=== PATIENT | female | born 1990 | race African-American/Black ===

== ENCOUNTER 2020-03-14 00:30 | Inpatient (IN) ==
[2020-03-14] MEDS ORDERED: BUTORPHANOL 2 MG/ML VIAL IV PRN (00:39)
[2020-03-14] MEDS ORDERED: LACTATED RINGERS 1,000 ML IV ONE (00:39)
[2020-03-14] MEDS ORDERED: ONDANSETRON 4 MG/2 ML VIAL IV PRN ×2 (00:39→18:52)
[2020-03-14 01:14] LABS: Basophils % 0.2 % (0.0-0.8); Eosinophils # 0.1 10*3/uL (0.0-0.87); Eosinophils % 0.9 % (0.00-10.9); Hematocrit 25.3 VOL% (35.7-47.0); Hemoglobin 7.7 GM/DL (12.0-16.0); Immature Granulocytes % 0.7 %; Immature Granulocytes Absolute 0.06 #; Lymphocytes # 2.6 10*3/uL (1.4-4.0); Lymphocytes % 28.2 % (21.3-54.2); Mean Corpuscular HGB Conc 30.4 GM/DL (32-36); Mean Corpuscular Volume 71.7 FL (87-102); Mean Platelet Volume 11.7 FL (9.6-12.0); Monocytes % 7.2 % (1.7-12.7); Neutrophils % 62.8 % (38.7-73.9); Platelet Count 155 T/CUMM (130-400); Red Blood Count 3.53 MC/CUMM (3.8-5.5); Red Cell Distribution Width 16.8 % (9.3-17.3); White Blood Count 9.1 T/CUMM (4-12)
[2020-03-14] MEDS: LACTATED RINGERS 1,000 ML IV SCH ×4 (01:19→13:55)
[2020-03-14 01:45] LABS: Albumin 2.7 G/DL (3.4-5.0); Bilirubin,Total 0.4 MG/DL (0.2-1.0); Calcium 8.6 MG/DL (8.5-10.1); Osmolality,Calculated 267.1 MOS/KG (273-304)
[2020-03-14] MEDS ORDERED: OXYTOCIN/LR 20 UNIT/1,000 ML BAG IV ONE ×2 (08:46→18:52)
[2020-03-14] MEDS ORDERED: OXYTOCIN/LR 20 UNIT/1,000 ML BAG IV SCH (09:30)
[2020-03-14] MEDS ORDERED: ePHEDrine 50 MG/ML VIAL IV PRN ×2 (13:05)
[2020-03-14] MEDS ORDERED: LACTATED RINGERS 250 ML IV PRN (13:05)
[2020-03-14] MEDS ORDERED: PROMETHAZINE 25 MG/1 ML VIAL IM ONE (13:05)
[2020-03-14] MEDS ORDERED: ONDANSETRON 4 MG/2 ML VIAL IV ONE (13:05)
[2020-03-14] MEDS ORDERED: CITRIC ACID/SODIUM CITRATE 30 ML UDCUP PO ONE (13:05)
[2020-03-14] MEDS ORDERED: NALOXONE 0.4 MG/ML VIAL IV PRN (13:05)
[2020-03-14] MEDS ORDERED: hydrOXYzine HCL 25 MG/1 ML VIAL IM PRN (13:05)
[2020-03-14] MEDS ORDERED: FAMOTIDINE 20 MG/2 ML VIAL IV ONE (13:05)
[2020-03-14] MEDS ORDERED: diphenhydrAMINE 50 MG/1 ML VIAL IV PRN ×2 (13:05)
[2020-03-14] MEDS ORDERED: fentaNYL 2 MCG/ROPIV 0.2% EPID 100 ML EPIDURAL SCH (13:30)
[2020-03-14 16:22] LABS: Bilirubin,Urine Negative (Negative); Blood, Urine Negative (Negative); Glucose,Urine (UA) Negative (Negative); Ketones,Urine 20 mg/dL (Negative); Mucus,Urine Occasional /LPF (Occasional); Nitrite,Urine Negative (Negative); Protein,Urine Negative; RBC,Urine 1 /HPF (0-4); Urine Appearance CLEAR (Clear); Urine Color Yellow (Yellow); Urine Specific Gravity 1.012 (1.001-1.035); Urine Urobilinogen < 2.0 EU/DL (0.2-1.0); WBC,Urine <1 /HPF (0-6)
[2020-03-14] MEDS ORDERED: ceFAZolin 2,000 MG in PREMIX 1 EACH IV ONE (17:36)
[2020-03-14] MEDS ORDERED: OXYTOCIN/LR 30 UNIT/1,000 ML BAG IV ONE (17:37)
[2020-03-14] MEDS ORDERED: OXYTOCIN 10 UNIT/ML VIAL IM ONE (17:37)
[2020-03-14] MEDS ORDERED: TRANEXAMIC ACID 1,000 MG/10 ML VIAL ONE (17:42)
[2020-03-14] MEDS ORDERED: miSOPROStoL 200 MCG TABLET ONE (17:42)
[2020-03-14] MEDS ORDERED: METHYLERGONOVINE 0.2 MG/1 ML AMP ONE (17:43)
[2020-03-14] MEDS ORDERED: LIDOCAINE MPF 2% /EPI 20 ML VIAL ONE (17:43)
[2020-03-14] MEDS ORDERED: CARBOPROST TROMETHAMINE 250 MCG/ML AMP IM ONE (17:43)
[2020-03-14] MEDS ORDERED: TERBUTALINE 1 MG/1 ML VIAL SUBCUT ONE (17:46)
[2020-03-14] MEDS ORDERED: ONDANSETRON 4 MG/2 ML VIAL ONE (17:49)
[2020-03-14] MEDS ORDERED: KETOROLAC 30 MG/1 ML VIAL ONE (17:49)
[2020-03-14] MEDS ORDERED: DEXAMETHASONE 4 MG/1 ML VIAL ONE (17:49)
[2020-03-14] MEDS ORDERED: PHENYLEPHRINE 1 MG/10 ML SYRINGE IV ONE ×3 (18:16→18:38)
[2020-03-14] MEDS ORDERED: MORPHINE 10 MG/10 ML VIAL ONE (18:34)
[2020-03-14] MEDS ORDERED: SIMETHICONE CHEW 80 MG TABLET PO PRN (18:52)
[2020-03-14] MEDS ORDERED: ACETAMINOPHEN 325 MG TABLET PO PRN (18:52)
[2020-03-14] MEDS ORDERED: RHO(D) IMMUNE GLOBULIN 300 MCG SYRINGE IM ONE (18:52)
[2020-03-14] MEDS ORDERED: MAGNESIUM HYDROXIDE SUSP 30 ML UDCUP PO PRN (18:52)
[2020-03-14] MEDS ORDERED: LACTATED RINGERS 1,000 ML IV SCH (19:00)
[2020-03-14] MEDS ORDERED: SODIUM BICARBONATE 10 MEQ/10 ML SYRINGE IV ONE (19:03)
[2020-03-14] MEDS ORDERED: SODIUM CHLORIDE 0.9% 1,000 ML IV PRN (19:32)
[2020-03-15] MEDS: DOCUSATE SODIUM 100 MG CAPSULE PO SCH ×3 (00:21→21:11)
[2020-03-15] MEDS ORDERED: KETOROLAC 30 MG/1 ML VIAL IV PRN (00:23)
[2020-03-15] MEDS ORDERED: diphenhydrAMINE 50 MG/1 ML VIAL ONE (00:52)
[2020-03-15] MEDS ORDERED: diphenhydrAMINE 50 MG/1 ML VIAL IV PRN (00:53)
[2020-03-15] MEDS: ceFAZolin 1,000 MG in SYRINGE 1 EACH IV SCH ×2 (01:09→10:15)
[2020-03-15 05:45] LABS: Basophils % 0.1 % (0.0-0.8); Hematocrit 28.7 VOL% (35.7-47.0); Hemoglobin 8.8 GM/DL (12.0-16.0); Immature Granulocytes % 1.1 %; Immature Granulocytes Absolute 0.26 #; Lymphocytes # 0.9 10*3/uL (1.4-4.0); Mean Corpuscular HGB Conc 30.7 GM/DL (32-36); Mean Corpuscular Volume 73.6 FL (87-102); Monocytes % 5.2 % (1.7-12.7); Neutrophils % 89.6 % (38.7-73.9); Platelet Count 136 T/CUMM (130-400); Red Cell Distribution Width 17.6 % (9.3-17.3); White Blood Count 23.3 T/CUMM (4-12)
[2020-03-15 06:08] LABS: Hypochromasia 1+; Lymphocytes 2 % (20-55); Platelet Estimate Adequate; Segmented Neutrophils 91 % (50-85); Total Cells Counted 100
[2020-03-15] MEDS: METOCLOPRAMIDE 10 MG TABLET PO SCH ×3 (08:21→23:49)
[2020-03-15] MEDS: MULTIVITAMIN (PRENATAL) TABLET PO SCH (08:21)
[2020-03-15] MEDS: MAGNESIUM HYDROXIDE SUSP 30 ML UDCUP PO SCH ×2 (08:22→21:14)
[2020-03-15] MEDS: IBUPROFEN 800 MG TABLET PO PRN (22:42)
[2020-03-16] MEDS: METOCLOPRAMIDE 10 MG TABLET PO SCH ×2 (09:01→17:35)
[2020-03-16] MEDS: MULTIVITAMIN (PRENATAL) TABLET PO SCH (09:01)
[2020-03-16] MEDS: MAGNESIUM HYDROXIDE SUSP 30 ML UDCUP PO SCH (09:01)
[2020-03-16] MEDS: DOCUSATE SODIUM 100 MG CAPSULE PO SCH (09:01)
[2020-03-16] MEDS: IBUPROFEN 800 MG TABLET PO PRN (09:04)
[2020-03-16 16:38] VITALS: BP 119/83
== END 2020-03-16 17:45 | disposition home or self-care (01) | DRG 540 ==
LOC: N.LDOUT 00:30 → N.LD 00:32 → N.OB 22:05
PROVIDERS: ADMIT Obstetrics & Gynecology; ATTEND Obstetrics & Gynecology
PROC: LDCSECT (ICD-10-PCS; 2020-03-14 18:25)